=== PATIENT | female | born 1980 | race Caucasian/White ===

== ENCOUNTER 2018-12-21 14:26 | Outpatient (CLI) | payer OTHER ==
[2018-12-21 15:05] VITALS: BP 90/40
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
== END 2018-12-21 14:27 | disposition home or self-care (01) ==
LOC: SC 14:26
PROVIDERS: ATTEND Internal Medicine Pulmonary Disease
DX: R06.83 Snoring (principal); R51 Headache; G47.8 Other sleep disorders; G47.10 Hypersomnia, unspecified
CPT/HCPCS: 99203; 99212

== ENCOUNTER 2019-01-22 20:29 | Outpatient (CLI) | payer OTHER | END 2019-01-22 20:30 | disposition home or self-care (01) | LOC: SC 20:29 | PROVIDERS: ATTEND Internal Medicine Pulmonary Disease | DX: R06.83 Snoring (principal) | CPT/HCPCS: 95810 ==

== ENCOUNTER 2019-02-02 13:42 | Outpatient (CLI) | payer OTHER ==
[2019-02-10 18:38] VITALS: BP 108/70
--- NOTE | 2019-02-10 18:38 | SLEEP CARE CONSULTATION ---
Information from patient questionnaire entered by Kimberley Johnson. I have reviewed and concur with the information entered by Kimberley Johnson. This document represents the service I personally performed and the decisions made by me, Carolina Holguin, RN, MSN, [employer]. History of Present Illness Initial Gilbert Sleepiness Scale score: 18 Current Gilbert Sleepiness Scale score: 17 Additional HPI information: YOHANA WOODS returns for follow up of the recently performed polysomnography and informed of findings. I explained the pathophysiology behind obstructive sleep apnea. Patient does not have sleep apnea and was advised how weight gain could increase the risk of developing sleep apnea in the future. I strongly encouraged the patient to lose weight and to discuss a diet consultation with her PCP for a referral. Optimal weight loss is achieved by use of a legal support manager coach cleaner. Patient felt good at 118 pounds. Patient has snoring. Snoring can be reduced by weight loss. She admits to waking to her own snoring most nights. Snoring can also be treated with an oral appliance from a dentist. Advised to check insurance coverage. In addition, an ENT evaluation can be do to see if other treatment is indicated. Since she has seasonal nasal congestion which can contribute to snoring risk, She is advised to discuss symptom management with PCP. Patient counseled not drink alcohol less than 4 hours before bedtime as it can increase snoring and apnea. Patient was cautioned about risks of drowsy driving until sleepiness symptoms resolve. Patient advised to avoid long distance driving and not to drive if over fatigued and consider alternate transportation. [facility] patient education on snoring and sleep apnea given and reviewed. Sleep Study - Polysomnography Polysomnography findings: The quality of the study is good. The patient had normal sleep efficiency. The sleep architecture was normal as well. Respiratory monitoring showed no significant sleep disordered breathing (AHI = 0.5) or hypoxia (erika oxygen saturation of 93%). The patient slept adequately in supine position (supine AHI = 1.0; nonsupine = 0.00). Snore was light in intensity. There was no significant periodic leg movement of sleep. Cardiac rhythm was normal sinus rhythm without significant arrhythmia. No abnormal behavior (parasomnia) observed during the night. Allergies and Home Medications Known drug allergies: No Home medication list reviewed: Yes Allergy and home medication list: gabapentin 100mg HS Dori generic prn Paxil 30mg daily. Vitamin B and D Review of Systems Review of systems same as previous: No (no changes stated) Physical Exam Blood Pressure: 108/70 Cuff size: regular Heart Rate: 66 O2 Saturation: 98 Height: 5 ft Weight (kg): 137 lb Body Mass Index: 26.7 BMI Classification: Overweight Impression and Plan 1. Snoring but no significant sleep disordered breathing. Patient advised that often weight loss will reduce snoring as well as apnea risk. She states she felt good at 118 pounds. Thus advised to try weight loss first to reduce snoring. A diet consultation can be helpful to reach weight loss goal and advised to discuss referral with her PCP. An oral appliance can also be used for snoring. This would require a dental consultation. Patient cautioned not to use other online appliances as can cause bite issues. A list of accredited dentists in area and one local dentist who makes oral appliances given. Patient is advised to check if insurance will cover if decides to pursue. An ENT consult can also be helpful to determine if any other treatment is an option. She is also advised to discuss symptom management of nasal congestion with her PCP as this can contribute to snoring. 2. Hypersomnia, etiology unknown. Patient is advised to follow up with PCP for further evaluation. She was advised how depression and PTSD can contribute to sleepiness symptoms as well as other medical conditions. In addition, as noted above, her sleep might be interrupted by her snoring which was only light on sleep study. * Attempt to lose weight * Avoid alcohol consumption near bedtime * The patient is cautioned about driving until sleepiness is completely resolved. * Follow up with PCP for further evaluation of nasal congestion, diet consultation and cause of sleepiness symptoms such as her PTSD. I spent 100% of this [15][30] minute visit face to face with the patient with greater than 50% of this was spent time counseling the patient and coordination of care.
== END 2019-02-02 13:43 | disposition home or self-care (01) ==
LOC: SC 13:42
PROVIDERS: ATTEND Nurse Practitioner Family
DX: R06.83 Snoring (principal); G47.10 Hypersomnia, unspecified
CPT/HCPCS: 99212; 99214